=== PATIENT | female | born 1930 | race Caucasian/White ===

== ENCOUNTER 2019-02-11 16:37 | Inpatient (IN) | payer MEDICARE, BC ==
[2019-02-11] MEDS ORDERED: Albuterol/Ipratropium 3.0-0.5 MG/3 ML Neb Soln NEB ONE (17:58)
--- NOTE | 2019-02-11 18:25 | EDM.PDOC ---
<Corina Cohn - Last Filed: 02/11/19 19:14> ED HPI GENERAL MEDICAL PROBLEM - General Chief Complaint: General Stated Complaint: KIDNEY PROBLEMS,DIZZY,DIARRHEA Time Seen by Provider: 02/11/19 17:55 - Related Data Allergies Allergy/AdvReac Type Severity Reaction Status Date / Time amoxicillin Allergy Other Verified 02/11/19 17:58 cetylpyridinium chloride Allergy Edema Verified 02/11/19 17:58 diphtheria,pertussis,tetanus,polio Allergy Other Verified 02/11/19 17:58 erythromycin base Allergy Diarrhea Verified 02/11/19 17:58 [From Erythrocin] lisinopril Allergy Other Verified 02/11/19 17:58 Macrolide Antibiotics Allergy Rash Verified 02/11/19 17:58 methyldopa Allergy Other Verified 02/11/19 17:58 Penicillins Allergy Rash Verified 02/11/19 17:58 simvastatin Allergy Other Verified 02/11/19 17:58 Home Meds: Home Meds Aspirin 325 mg PO DAILY 02/11/19 [History] Calcium Citrate 200 mg PO DAILY 02/11/19 [History] Cetirizine [ZyrTEC] 10 mg PO DAILY 02/11/19 [History] Cholestyramine (With Sugar) [Questran Powder] 4 gm PO DAILY 02/11/19 [History] L Acidophil/B Lactis/B Longum [Florajen3] 460 mg PO DAILY 02/11/19 [History] Levothyroxine Sodium [Synthroid] 150 mcg PO DAILY 02/11/19 [History] Losartan [Cozaar] 100 mg PO DAILY 02/11/19 [History] Meclizine [Antivert] 25 mg PO TID 02/11/19 [History] Metoprolol Succinate [Toprol XL 100mg] 100 mg PO DAILY 02/11/19 [History] Mirtazapine [Remeron] 7.5 mg PO BEDTIME 02/11/19 [History] Pantoprazole Sodium [Protonix] 40 mg PO DAILY 02/11/19 [History] Triamcinolone Acetonide [Kenalog 0.1% Crm] 1 applic TOP DAILY 02/11/19 [History] amLODIPine Besylate [Norvasc] 10 mg PO DAILY 02/11/19 [History] Course - Vital Signs Last Recorded V/S: Last Vital Signs Temp 97.6 F 02/12/19 07:00 Pulse 81 02/12/19 07:00 Resp 16 02/12/19 07:00 BP 110/56 L 02/12/19 07:00 Pulse Ox 97 02/12/19 07:00 - Orders/Labs/Meds Orders: Active Orders 24 hr Category Date Time Status Oxygen Therapy, ED [RC] ASDIRECTED Care 02/11/19 19:36 Inactive CULTURE URINE [RM] Stat Lab 02/11/19 20:22 Results Sodium Chloride 0.9% [Normal Saline] 1,000 ml Med 02/11/19 20:30 Active IV ASDIRECTED cefTRIAXone [Rocephin] 1 gm Med 02/11/19 20:30 Active Sodium Chloride 0.9% [Normal Saline] 50 ml IV Q24H Medication Orders Acetaminophen (Tylenol) 650 mg PO Q4H PRN PRN Reason: Pain (Mild 1-3)/fever Albuterol (Proventil Neb Soln) 2.5 mg NEB Q4H PRN PRN Reason: Shortness Of Breath/wheezing Amlodipine Besylate (Norvasc) 10 mg PO DAILY [facility] Aspirin (Ecotrin) 325 mg PO DAILY [facility] Cetirizine HCl (Zyrtec) 10 mg PO DAILY [facility] Cholestyramine Resin (Cholestyramine Packet) 4 gm PO DAILY [facility] Ceftriaxone Sodium 1 gm/ (Sodium Chloride) 50 mls @ 100 mls/hr IV Q24H [facility] Last Admin: 02/11/19 20:50 Dose: 100 mls/hr Sodium Chloride (Normal Saline) 1,000 mls @ 100 mls/hr IV ASDIRECTED [facility] Last Admin: 02/12/19 03:28 Dose: 100 mls/hr Infusion: 02/12/19 03:28 Dose: 100 mls/hr Admin: 02/11/19 20:49 Dose: 100 mls/hr Lactobacillus Rhamnosus (Culturelle) 1 cap PO DAILY [facility] Levothyroxine Sodium (Synthroid) 150 mcg PO DAILY [facility] Melatonin (Melatonin) 9 mg PO BEDTIME PRN PRN Reason: Sleep Metoprolol Succinate (Toprol Xl) 100 mg PO DAILY [facility] Mirtazapine (Remeron) 7.5 mg PO BEDTIME [facility] Last Admin: 02/11/19 21:20 Dose: Not Given Ondansetron HCl (Zofran Odt) 4 mg PO Q6H PRN PRN Reason: Nausea able to take PO Ondansetron HCl (Zofran) 4 mg IV Q6H PRN PRN Reason: Nausea/Vomiting Labs: Laboratory Tests 02/11/19 02/11/19 02/11/19 Range/Units 17:55 19:36 19:49 WBC 9.4 (4.5-11.0) K/uL RBC 4.45 (3.30-5.50) M/uL Hgb 12.6 (12.0-15.0) g/dL Hct 39.3 (36.0-48.0) % MCV 88 (80-98) fL MCH 28 (27-31) pg MCHC 32 (32-36) % Plt Count 306 (150-400) K/uL Neut % (Auto) 62 (36-66) % Lymph % (Auto) 26 (24-44) % Brule % (Auto) 10 H (2-6) % Eos % (Auto) 2 (2-4) % Baso % (Auto) 1 (0-1) % Troponin I < 0.017 (0.000-0.056) ng/mL TSH, Ultra Sensitive (0.358-3.740) uIU/mL Urine Color Yellow Urine Appearance Cloudy Urine pH 5.0 (4.5-8.0) Ur Specific Sem[place] 1.015 (1.008-1.030) Urine Protein Negative (NEGATIVE) mg/dL Urine Glucose (UA) Normal (NEGATIVE) mg/dL Urine Ketones Negative (NEGATIVE) mg/dL Urine Occult Blood Trace (NEGATIVE) Urine Nitrite Negative (NEGATIVE) Urine Bilirubin Negative (NEGATIVE) Urine Urobilinogen Normal (NORMAL) mg/dL Ur Leukocyte Esterase Moderate (NEGATIVE) Urine RBC 5-10 H (0-5) Urine WBC 40-50 H (0-5) Ur Epithelial Cells Moderate Amorphous Sediment Not seen Urine Bacteria Moderate Urine Mucus Not seen 02/11/19 Range/Units 19:50 WBC (4.5-11.0) K/uL RBC (3.30-5.50) M/uL Hgb (12.0-15.0) g/dL Hct (36.0-48.0) % MCV (80-98) fL MCH (27-31) pg MCHC (32-36) % Plt Count (150-400) K/uL Neut % (Auto) (36-66) % Lymph % (Auto) (24-44) % Brule % (Auto) (2-6) % Eos % (Auto) (2-4) % Baso % (Auto) (0-1) % Troponin I (0.000-0.056) ng/mL TSH, Ultra Sensitive 8.126 H (0.358-3.740) uIU/mL Urine Color Urine Appearance Urine pH (4.5-8.0) Ur Specific Seminary (1.008-1.030) Urine Protein (NEGATIVE) mg/dL Urine Glucose (UA) (NEGATIVE) mg/dL Urine Ketones (NEGATIVE) mg/dL Urine Occult Blood (NEGATIVE) Urine Nitrite (NEGATIVE) Urine Bilirubin (NEGATIVE) Urine Urobilinogen (NORMAL) mg/dL Ur Leukocyte Esterase (NEGATIVE) Urine RBC (0-5) Urine WBC (0-5) Ur Epithelial Cells Amorphous Sediment Urine Bacteria Urine Mucus Meds: Medications Generic Name Dose Route Start Last Admin Trade Name Freq PRN Reason Stop Dose Admin Acetaminophen 650 mg 02/11/19 21:03 Tylenol PO Q4H PRN Pain (Mild 1-3)/fever Albuterol 2.5 mg 02/11/19 21:03 Proventil Neb Soln NEB Q4H PRN Shortness Of Breath/wheezing Amlodipine Besylate 10 mg 02/12/19 09:00 Norvasc PO DAILY [facility] Aspirin 325 mg 02/12/19 09:00 Ecotrin PO DAILY [facility] Cetirizine HCl 10 mg 02/12/19 09:00 Zyrtec PO DAILY [facility] Cholestyramine Resin 4 gm 02/12/19 09:00 Cholestyramine Packet PO DAILY [facility] Ceftriaxone Sodium 1 gm/ 50 mls @ 100 mls/hr 02/11/19 20:30 02/11/19 20:50 Sodium Chloride IV 100 mls/hr Q24H [facility] Administration Sodium Chloride 1,000 mls @ 100 mls/hr 02/11/19 20:30 02/12/19 03:28 Normal Saline IV 100 mls/hr ASDIRECTED [facility] Administration Lactobacillus Rhamnosus 1 cap 02/12/19 09:00 Culturelle PO DAILY [facility] Levothyroxine Sodium 150 mcg 02/12/19 09:00 Synthroid PO DAILY [facility] Melatonin 9 mg 02/11/19 21:03 Melatonin PO BEDTIME PRN Sleep Metoprolol Succinate 100 mg 02/12/19 09:00 Toprol Xl PO DAILY [facility] Mirtazapine 7.5 mg 02/11/19 21:15 02/11/19 21:20 Remeron PO Not Given BEDTIME [facility] Ondansetron HCl 4 mg 02/11/19 21:03 Zofran Odt PO Q6H PRN Nausea able to take PO Ondansetron HCl 4 mg 02/11/19 21:03 Zofran IV Q6H PRN Nausea/Vomiting Discontinued Medications Generic Name Dose Route Start Last Admin Trade Name Freq PRN Reason Stop Dose Admin Albuterol/Ipratropium 3 ml 02/11/19 17:58 02/11/19 18:08 Duoneb 3.0-0.5 Mg/3 Ml NEB 02/11/19 17:59 3 ml ONETIME ONE Administration Sodium Chloride 500 mls @ 999 mls/hr 02/11/19 18:30 02/11/19 18:45 Normal Saline IV 999 mls/hr ASDIRECTED [facility] Administration Sodium Chloride 1,000 mls @ 500 mls/hr 02/11/19 21:03 02/11/19 21:23 Normal Saline IV 02/11/19 22:04 500 mls/hr ASDIRECTED [facility] Administration - Re-Assessments/Exams Free Text/Narrative Re-Assessment/Exam: 02/11/19 19:14 pt had a neg cat scan of the chest and her trop was neg. She will be admitted by Dr Ness. Departure - Departure Time of Disposition: 19:15 Disposition: Admitted As Inpatient 67 Condition: Fair Clinical Impression: Weakness, Dehydration, Acute kidney injury Atrial fibrillation Qualifiers: Atrial fibrillation type: unspecified Qualified Code(s): I48.91 - Unspecified atrial fibrillation - Discharge Information <Jason Parks - Last Filed: 02/12/19 07:37> ED HPI GENERAL MEDICAL PROBLEM - General Source of Information: Reports: Patient, Family, Provider History Limitations: Reports: No Limitations - History of Present Illness INITIAL COMMENTS - FREE TEXT/NARRATIVE: 88-year-old female, who normally is self-sufficient, ambulates without difficulty and does not usually struggle with dyspnea has had 3 days of weakness , shortness of breath with ambulation and activity, and fatigue. She is also very dizzy. She went into the clinic to be evaluated, was found to have a rising creatinine and felt she needed further workup in the emergency room. A chest x-ray done at the clinic was felt to be "normal". She denies any chest pain or palpitations. She has chronic diarrhea but that is unchanged. She has chronic back pain, that is also unchanged. She does admit she's had increasing cough over the past week or two. She has had no recent falls or trauma. Her main concern is her significant shortness of breath with any activity. Onset: Gradual Duration: Day(s): (Worsening over the last several days) Associated Symptoms: Reports: Cough (She has been struggling with a cough for the past week), Shortness of Breath (Especially with activity), Weakness. Denies: Confusion, Chest Pain, Nausea/Vomiting Past Medical History HEENT History: Reports: Cataract, Impaired Vision Cardiovascular History: Reports: Hypertension Gastrointestinal History: Reports: Chronic Diarrhea AUTOGLAZIER History: Reports: Musculoskeletal History: Reports: Back Pain, Chronic Neurological History: Reports: TIA Endocrine/Metabolic History: Reports: Hypothyroidism Dermatologic History: Reports: Eczema - Past Surgical History Head Surgeries/Procedures: Reports: None HEENT Surgical History: Reports: None Cardiovascular Surgical History: Reports: None GI Surgical History: Reports: None Endocrine Surgical History: Reports: None Neurological Surgical History: Reports: None Musculoskeletal Surgical History: Reports: Shoulder Surgery, Other (See Below) Other Musculoskeletal Surgeries/Procedures:: left elbow Dermatological Surgical History: Reports: None Social & Family History - Tobacco Use Smoking Status *Q: Never Smoker Second Hand Smoke Exposure: No - Caffeine Use Caffeine Use: Reports: Tea - Recreational Drug Use Recreational Drug Use: No ED ROS GENERAL - Review of Systems Review Of Systems: See Below Constitutional: Reports: Malaise. Denies: Fever, Chills HEENT: Reports: No Symptoms Respiratory: Reports: Shortness of Breath, Cough Cardiovascular: Denies: Chest Pain, Palpitations GI/Abdominal: Reports: Diarrhea. Denies: Abdominal Pain, Nausea, Vomiting : Reports: No Symptoms Skin: Reports: No Symptoms Neurological: Reports: Dizziness. Denies: Headache Psychiatric: Reports: No Symptoms ED EXAM, GENERAL - Physical Exam Exam: See Below Exam Limited By: No Limitations General Appearance: Alert, No Apparent Distress Eye Exam: Bilateral Eye: EOMI Head: Atraumatic Respiratory/Chest: No Respiratory Distress, Wheezing (Scattered expiratory wheezes are present but good air movement is present to the bases) Cardiovascular: Irregularly Irregular (Heart sounds are faint, irregularly irregular) GI/Abdominal: Soft, Non-Tender Extremities: No: Pedal Edema Neurological: Alert, Oriented, No Motor/Sensory Deficits Skin Exam: Warm, Dry Course - Orders/Labs/Meds Labs: Laboratory Tests 02/11/19 02/11/19 02/11/19 Range/Units 17:55 19:36 19:49 WBC 9.4 (4.5-11.0) K/uL RBC 4.45 (3.30-5.50) M/uL Hgb 12.6 (12.0-15.0) g/dL Hct 39.3 (36.0-48.0) % MCV 88 (80-98) fL MCH 28 (27-31) pg MCHC 32 (32-36) % Plt Count 306 (150-400) K/uL Neut % (Auto) 62 (36-66) % Lymph % (Auto) 26 (24-44) % Brule % (Auto) 10 H (2-6) % Eos % (Auto) 2 (2-4) % Baso % (Auto) 1 (0-1) % Troponin I < 0.017 (0.000-0.056) ng/mL TSH, Ultra Sensitive (0.358-3.740) uIU/mL Urine Color Yellow Urine Appearance Cloudy Urine pH 5.0 (4.5-8.0) Ur Specific [place] 1.015 (1.008-1.030) Urine Protein Negative (NEGATIVE) mg/dL Urine Glucose (UA) Normal (NEGATIVE) mg/dL Urine Ketones Negative (NEGATIVE) mg/dL Urine Occult Blood Trace (NEGATIVE) Urine Nitrite Negative (NEGATIVE) Urine Bilirubin Negative (NEGATIVE) Urine Urobilinogen Normal (NORMAL) mg/dL Ur Leukocyte Esterase Moderate (NEGATIVE) Urine RBC 5-10 H (0-5) Urine WBC 40-50 H (0-5) Ur Epithelial Cells Moderate Amorphous Sediment Not seen Urine Bacteria Moderate Urine Mucus Not seen 02/11/19 Range/Units 19:50 WBC (4.5-11.0) K/uL RBC (3.30-5.50) M/uL Hgb (12.0-15.0) g/dL Hct (36.0-48.0) % MCV (80-98) fL MCH (27-31) pg MCHC (32-36) % Plt Count (150-400) K/uL Neut % (Auto) (36-66) % Lymph % (Auto) (24-44) % Brule % (Auto) (2-6) % Eos % (Auto) (2-4) % Baso % (Auto) (0-1) % Troponin I (0.000-0.056) ng/mL TSH, Ultra Sensitive 8.126 H (0.358-3.740) uIU/mL Urine Color Urine Appearance Urine pH (4.5-8.0) Ur Specific Seminary (1.008-1.030) Urine Protein (NEGATIVE) mg/dL Urine Glucose (UA) (NEGATIVE) mg/dL Urine Ketones (NEGATIVE) mg/dL Urine Occult Blood (NEGATIVE) Urine Nitrite (NEGATIVE) Urine Bilirubin (NEGATIVE) Urine Urobilinogen (NORMAL) mg/dL Ur Leukocyte Esterase (NEGATIVE) Urine RBC (0-5) Urine WBC (0-5) Ur Epithelial Cells Amorphous Sediment Urine Bacteria Urine Mucus - Re-Assessments/Exams Free Text/Narrative Re-Assessment/Exam: 02/11/19 18:24 Cardiac monitoring showed patient was in atrial fibrillation. This is new to her. I did review the labs from the clinic and it does appear to be some dehydration likely. She'll be bolused with 500 mL of normal saline, given a DuoNeb as she needs to to 3 L of oxygen to maintain saturations above 90%. Troponin will be drawn and after consultation the hospitalist service a CT of her chest without contrast. If her troponin is negative she may be able to be cared for here hospital, if troponin is elevated she may need transfer. This was discussed with Dr. Cohn who will take over care of the patient pending labs.
[2019-02-11] MEDS ORDERED: Sodium Chloride 0.9% 500 ML IV SCH (18:30)
--- NOTE | 2019-02-11 19:12 | CRLCT ---
INDICATION: Hypoxia, cough. TECHNIQUE: CT chest without contrast. COMPARISON: None FINDINGS: Cardiovascular structures: Heart size is normal. Thoracic aorta and main pulmonary artery are normal in caliber. Coronary artery calcifications. Atherosclerotic calcification of the aortic arch and origins of the great vessels. No pericardial effusion. Mediastinum and hodan: No mediastinal or hilar lymphadenopathy. Lungs: Central airways are patent. Calcified granuloma in the right lower lobe. No focal consolidation or mass. There is a 4 mm solid nodule in the left upper lobe (series 3, image 46). Pleura and pericardium: No effusions. Chest wall and axilla: No mass or adenopathy. Bones: Multilevel degenerative changes of spine. Surgical hardware in the left humeral head. Chronic appearing fractures of the left lateral 5th and 6th ribs. Upper abdomen: Small hiatal hernia. Calcified granulomas in spleen, consistent with chronic granulomatous disease. IMPRESSION: 1. No focal pulmonary consolidation. No pulmonary mass. 2. Left upper lobe pulmonary nodule measuring 4 mm. Per Fleischner Society guidelines, if the patient is low risk, no follow-up is required. If the patient is high risk, optional CT could be performed in 12 months. FLEISCHNER SOCIETY GUIDELINES - SOLID NODULES: SINGLE LOW RISK - nodule less than 6 mm: No routine follow-up. - nodule 6-8 mm: CT at 6-12 months, then consider CT at 18-24 months. - nodule greater than 8 mm: Consider CT at 3 months, PET/CT or tissue sampling. SINGLE HIGH RISK - nodule less than 6 mm: Optional CT at 12 months. - nodule 6-8 mm: CT at 6-12 months, then CT at 18-24 months. - nodule greater than 8 mm: Consider CT at 3 months, PET/CT or tissue sampling. Dictated by Kirti Srinivasan MD @ 02/11/2019 7:11:16 PM Please note that all CT scans at this facility use dose modulation, iterative reconstruction, and/or weight-based dosing when appropriate to reduce radiation dose to as low as reasonably achievable. Dictated by: Kirti Srinivasan MD @ 02/11/2019 19:11:22 (Electronically Signed)
--- NOTE | 2019-02-11 20:32 | PCM.HP ---
H&P History of Present Illness - General Date of Service: 02/11/19 Admit Problem/Dx: Admission Diagnosis/Problem Admission Diagnosis/Problem Acute kidney injury Source of Information: Patient, Family, Provider History Limitations: Reports: No Limitations - History of Present Illness Initial Comments - Free Text/Narative: CC: I am short of breath after walking ten feet HPI: Antonietta presents to the ER from the urgent care clinic with concerns of significant shortness of breath with exertion as well as acute kidney injury. She reports first not feeling well about 2 weeks ago. She describes mild fatigue and right lower back soreness with activity. The achy pain was relatively mild and did get better with rest but was new for her. The pain did not radiate down her leg. No preceding injury. Over the next couple of weeks her energy and appetite both slowly decreased. Over the past few days she has had a very poor appetite and very little to eat or drink. She is short of breath with any activity. She has not had any chest pain. She does have an occasional cough which is sometimes productive for sputum but she has not checked the color. She doesn't think she's had any fevers but has had some chills. She has not had any sick contacts. No significant travel. She has not started any new medications. She thinks maybe she's been urinating a little less than usual but still makes close to normal quantities of urine each day. Workup in the clinic revealed a creatinine of 3.2 with a metabolic acidosis and a bicarbonate of 13. Potassium is borderline at 5.3 and sodium is slightly low at 133. Chest x-ray was clear. With the significant dyspnea and acute kidney injury the patient was sent to the emergency room for further evaluation. Further laboratory studies in the emergency room revealed a troponin that was undetectable, mildly elevated TSH, normal CBC. Urinalysis moderately suggestive of infection. She is in atrial fibrillation with a controlled ventricular rate. She was hypoxic and required 3 L of oxygen initially. Chest CT without contrast was unremarkable. Oxygen has been weaned down to 1 L. Patient has received some IV fluids and will be receiving antibiotics for her infection. She'll be admitted for management of a variety of issues. - Related Data Allergies/Adverse Reactions: Allergies Allergy/AdvReac Type Severity Reaction Status Date / Time amoxicillin Allergy Other Verified 02/11/19 17:58 cetylpyridinium chloride Allergy Edema Verified 02/11/19 17:58 diphtheria,pertussis,tetanus,polio Allergy Other Verified 02/11/19 17:58 erythromycin base Allergy Diarrhea Verified 02/11/19 17:58 [From Erythrocin] lisinopril Allergy Other Verified 02/11/19 17:58 Macrolide Antibiotics Allergy Rash Verified 02/11/19 17:58 methyldopa Allergy Other Verified 02/11/19 17:58 Penicillins Allergy Rash Verified 02/11/19 17:58 simvastatin Allergy Other Verified 02/11/19 17:58 Home Medications: Home Meds Aspirin 325 mg PO DAILY 02/11/19 [History] Calcium Citrate 200 mg PO DAILY 02/11/19 [History] Cetirizine [ZyrTEC] 10 mg PO DAILY 02/11/19 [History] Cholestyramine (With Sugar) [Questran Powder] 4 gm PO DAILY 02/11/19 [History] L Acidophil/B Lactis/B Longum [Florajen3] 460 mg PO DAILY 02/11/19 [History] Levothyroxine Sodium [Synthroid] 150 mcg PO DAILY 02/11/19 [History] Losartan [Cozaar] 100 mg PO DAILY 02/11/19 [History] Meclizine [Antivert] 25 mg PO TID 02/11/19 [History] Metoprolol Succinate [Toprol XL 100mg] 100 mg PO DAILY 02/11/19 [History] Mirtazapine [Remeron] 7.5 mg PO BEDTIME 02/11/19 [History] Pantoprazole Sodium [Protonix] 40 mg PO DAILY 02/11/19 [History] Triamcinolone Acetonide [Kenalog 0.1% Crm] 1 applic TOP DAILY 02/11/19 [History] amLODIPine Besylate [Norvasc] 10 mg PO DAILY 02/11/19 [History] Past Medical History HEENT History: Reports: Cataract, Impaired Vision Cardiovascular History: Reports: Hypertension Gastrointestinal History: Reports: Chronic Diarrhea [employer] History: Reports: Musculoskeletal History: Reports: Back Pain, Chronic Neurological History: Reports: TIA Endocrine/Metabolic History: Reports: Hypothyroidism Dermatologic History: Reports: Eczema - Past Surgical History Head Surgeries/Procedures: Reports: None HEENT Surgical History: Reports: None Cardiovascular Surgical History: Reports: None GI Surgical History: Reports: None Endocrine Surgical History: Reports: None Neurological Surgical History: Reports: None Musculoskeletal Surgical History: Reports: Shoulder Surgery, Other (See Below) Other Musculoskeletal Surgeries/Procedures:: left elbow Dermatological Surgical History: Reports: None Social & Family History - Family History : Denies: Dialysis - Tobacco Use Smoking Status *Q: Never Smoker Second Hand Smoke Exposure: No - Caffeine Use Caffeine Use: Reports: Tea - Alcohol Use Alcohol Use History: No - Recreational Drug Use Recreational Drug Use: No H&P Review of Systems - Review of Systems: Review Of Systems: See Below Free Text/Narrative: A complete 12 point review of systems was obtained. Pertinent positives and negatives are noted in the history of present illness. All other systems were reviewed and were negative except as noted. Exam - Exam Exam: See Below - Vital Signs Vital Signs: Last Vital Signs Temp 35.4 C 02/11/19 19:32 Pulse 89 02/11/19 19:32 Resp 19 02/11/19 19:32 BP 119/77 02/11/19 19:32 Pulse Ox 100 02/11/19 19:32 Weight: 71 kg - Exam Quality Assessment: Supplemental Oxygen General: Alert, Oriented, Cooperative. No: Mild Distress HEENT: Conjunctiva Clear. No: Mucosa Moist & [place] (dry), Scleral Icterus Neck: Supple, Trachea Midline. No: Lymphadenopathy, JVD Lungs: Clear to Auscultation, Normal Respiratory Effort. No: Crackles, Wheezing Cardiovascular: Regular Rate, Irregular Rhythm. No: Systolic Murmur GI/Abdominal Exam: Normal Bowel Sounds, Soft, Non-Tender, No Distention, No Mass Back Exam: Normal Inspection, Full Range of Motion Extremities: No Pedal Edema. No: Joint Swelling, Increased Warmth Skin: Warm, Dry Neuro Extensive - Mental Status: Alert, Oriented x3, Nl Response to Commands Neuro Extensive - Motor, Sensory, Reflexes: No: Dysarthria, Abnormal Motor, Tremor Psychiatric: Alert, Normal Affect - Patient Data Lab Results Last 24 hrs: Laboratory Results - last 24 hr 02/11/19 02/11/19 02/11/19 Range/Units 17:55 19:36 19:49 WBC 9.4 (4.5-11.0) K/uL RBC 4.45 (3.30-5.50) M/uL Hgb 12.6 (12.0-15.0) g/dL Hct 39.3 (36.0-48.0) % MCV 88 (80-98) fL MCH 28 (27-31) pg MCHC 32 (32-36) % Plt Count 306 (150-400) K/uL Neut % (Auto) 62 (36-66) % Lymph % (Auto) 26 (24-44) % [place] % (Auto) 10 H (2-6) % Eos % (Auto) 2 (2-4) % Baso % (Auto) 1 (0-1) % Troponin I < 0.017 (0.000-0.056) ng/mL TSH, Ultra Sensitive (0.358-3.740) uIU/mL Urine Color Yellow Urine Appearance Cloudy Urine pH 5.0 (4.5-8.0) Ur Specific [place] 1.015 (1.008-1.030) Urine Protein Negative (NEGATIVE) mg/dL Urine Glucose (UA) Normal (NEGATIVE) mg/dL Urine Ketones Negative (NEGATIVE) mg/dL Urine Occult Blood Trace (NEGATIVE) Urine Nitrite Negative (NEGATIVE) Urine Bilirubin Negative (NEGATIVE) Urine Urobilinogen Normal (NORMAL) mg/dL Ur Leukocyte Esterase Moderate (NEGATIVE) Urine RBC 5-10 H (0-5) Urine WBC 40-50 H (0-5) Ur Epithelial Cells Moderate Amorphous Sediment Not seen Urine Bacteria Moderate Urine Mucus Not seen 02/11/19 Range/Units 19:50 WBC (4.5-11.0) K/uL RBC (3.30-5.50) M/uL Hgb (12.0-15.0) g/dL Hct (36.0-48.0) % MCV (80-98) fL MCH (27-31) pg MCHC (32-36) % Plt Count (150-400) K/uL Neut % (Auto) (36-66) % Lymph % (Auto) (24-44) % [place] % (Auto) (2-6) % Eos % (Auto) (2-4) % Baso % (Auto) (0-1) % Troponin I (0.000-0.056) ng/mL TSH, Ultra Sensitive 8.126 H (0.358-3.740) uIU/mL Urine Color Urine Appearance Urine pH (4.5-8.0) Ur Specific [place] (1.008-1.030) Urine Protein (NEGATIVE) mg/dL Urine Glucose (UA) (NEGATIVE) mg/dL Urine Ketones (NEGATIVE) mg/dL Urine Occult Blood (NEGATIVE) Urine Nitrite (NEGATIVE) Urine Bilirubin (NEGATIVE) Urine Urobilinogen (NORMAL) mg/dL Ur Leukocyte Esterase (NEGATIVE) Urine RBC (0-5) Urine WBC (0-5) Ur Epithelial Cells Amorphous Sediment Urine Bacteria Urine Mucus Result Diagrams: 02/11/19 19:49 Imaging Impressions Last 24 hrs: CT scan of the chest without contrast - images personally reviewed - lungs are clear with no obvious mass, infiltrate or effusion. A very small 4 mm pulmonary nodule was noted *Q Meaningful Use (ADM) - VTE Risk Assess *Q Each Risk Factor Represents 1 Point: Obesity ( BMI > 25 kg/m2) Total Score 1 Point Risk Factors: 1 Each Risk Factor Represents 2 Points: None Total Score 2 Point Risk Factors: 0 Each Risk Factor Represents 3 Points: Age 75 Years or Greater Total Score 3 Point Risk Factors: 3 Each Risk Factor Represents 5 Points: None Total Score 5 Point Risk Factors: 0 Venous Thromboembolism Risk Factor Score *Q: 4 - Problem List (1) Acute kidney injury superimposed on chronic kidney disease SNOMED Code(s): 21219305 ICD Code: N17.9 - ACUTE KIDNEY FAILURE, UNSPECIFIED; N18.9 - CHRONIC KIDNEY DISEASE, UNSPECIFIED Status: Acute Current Visit: Yes (2) Metabolic acidosis SNOMED Code(s): 54529648 ICD Code: E87.2 - ACIDOSIS Status: Acute Current Visit: Yes (3) Dyspnea on exertion SNOMED Code(s): 31514854 ICD Code: R06.09 - OTHER FORMS OF DYSPNEA Status: Acute Current Visit: Yes (4) Hypoxia SNOMED Code(s): 693968215 ICD Code: R09.02 - HYPOXEMIA Status: Acute Current Visit: Yes (5) New onset atrial fibrillation SNOMED Code(s): 56095564 ICD Code: I48.91 - UNSPECIFIED ATRIAL FIBRILLATION Status: Acute Current Visit: Yes (6) Acute cystitis without hematuria SNOMED Code(s): 07019760 ICD Code: N30.00 - ACUTE CYSTITIS WITHOUT HEMATURIA Status: Acute Current Visit: Yes (7) Essential hypertension SNOMED Code(s): 02028165 ICD Code: I10 - ESSENTIAL (PRIMARY) HYPERTENSION Status: Chronic Current Visit: Yes Problem List Initiated/Reviewed/Updated: Yes Orders Last 24hrs: Active Orders 24 hr Category Date Time Status Patient Status Manage Transfer [TRANSFER] Routine ADT 02/11/19 20:22 Ordered Oxygen Therapy, ED [RC] ASDIRECTED Care 02/11/19 19:36 Active RT Aerosol Therapy [RC] ASDIRECTED Care 02/11/19 17:58 Active CULTURE URINE [RM] Stat Lab 02/11/19 20:22 Received Sodium Chloride 0.9% [Normal Saline] 1,000 ml Med 02/11/19 20:30 Active IV ASDIRECTED Sodium Chloride 0.9% [Normal Saline] 500 ml Med 02/11/19 18:30 Active IV ASDIRECTED cefTRIAXone [Rocephin] 1 gm Med 02/11/19 20:30 Active Sodium Chloride 0.9% [Normal Saline] 50 ml IV Q24H Resuscitation Status Routine Resus Stat 02/11/19 20:24 Ordered Medication Orders Sodium Chloride (Normal Saline) 500 mls @ 999 mls/hr IV ASDIRECTED SINA Last Admin: 02/11/19 18:45 Dose: 999 mls/hr Ceftriaxone Sodium 1 gm/ (Sodium Chloride) 50 mls @ 100 mls/hr IV Q24H SINA Sodium Chloride (Normal Saline) 1,000 mls @ 100 mls/hr IV ASDIRECTED ISNA Assessment/Plan Comment:: ASSESSMENT AND PLAN - Acute kidney injury - also has metabolic acidosis but normal anion gap. She appears dehydrated on examination so I think this is prerenal. Intake has been poor. She is on an ARB and is also on a proton pump inhibitor, both of which could be culprits. She is still making urine so I don't think there is bilateral obstruction. Potassium is borderline elevated. -IV fluids overnight -Hold ARB and PPI -Renal ultrasound in the morning -Repeat labs in the morning Dyspnea on exertion with associated hypoxia - oxygenation seems variable from [id number] and she may not actually be hypoxic. Chest x-ray was clear. Pulmonary exam is clear. CT of the chest was unremarkable. The dyspnea may be related to her metabolic acidosis. -Supplement oxygen, wean as able -As needed nebulizers New-onset atrial fibrillation - rate is controlled at this time and patient is on metoprolol. Onset of this dysrhythmia is unclear. Could be related to combination of infection and acute kidney injury. -Continue beta greer -Continue aspirin -Cardiac monitoring -Echo in the morning Acute cystitis - No significant symptoms but urine moderately suggestive of infection. -Empiric ceftriaxone -Set up urine culture Maintenance issues - - DVT prophylaxis - mechanical - GI prophylaxis - not indicated - Nutrition - regular diet - Hernandez catheter - not indicated CODE STATUS - DNR/DNI - discussed with patient and family Admission justification - This patient will be admitted for inpatient services and is medically appropriate meeting medical necessity for inpatient admission as outlined in my documentation. I reasonably expect the patient will require inpatient services that span a period time over 2 midnights. I reasonably expect this patient to be discharged or transferred within 96 [address] the [facility]. Disposition - I would anticipate discharge home after the hospital stay Primary care physician - no local primary care, patient resides in [place], [place] Ron Ness M.D.
[2019-02-11] MEDS: Sodium Chloride 0.9% 1,000 ML IV SCH (20:49)
[2019-02-11] MEDS: cefTRIAXone 1 GM in Sodium Chloride 0.9% 50 ML IV SCH (20:50)
[2019-02-11] MEDS ORDERED: Ondansetron 4 MG Tab.DIS PO PRN (21:03)
[2019-02-11] MEDS ORDERED: Sodium Chloride 0.9% 1,000 ML IV SCH (21:03)
[2019-02-11] MEDS ORDERED: Melatonin 3 MG Tab PO PRN (21:03)
[2019-02-11] MEDS ORDERED: Acetaminophen 325 MG Tab PO PRN (21:03)
[2019-02-11] MEDS ORDERED: Albuterol 0.083% 2.5 MG/3 ML Neb Soln NEB PRN (21:03)
[2019-02-11] MEDS ORDERED: Ondansetron 4 MG/2 ML SDV IV PRN (21:03)
[2019-02-11] MEDS: Mirtazapine 15 MG Tab PO SCH (21:20)
[2019-02-12] MEDS: Sodium Chloride 0.9% 1,000 ML IV SCH (03:28)
--- NOTE | 2019-02-12 08:43 | CRLUS ---
CLINICAL HISTORY: Acute renal injury. Rule out obstruction. COMPARISON: none TECHNIQUE: 2D garcia scale and color Doppler images were acquired of the kidneys and urinary bladder. FINDINGS: Sonographic images reveal a symmetric appearance of the kidneys. The right kidney measures 10.4cm in length and the left kidney measures 9.6cm in length. There is mild thinning of the renal cortex within both kidneys. There is a oval hyperechoic mass within the mid right kidney measuring 16 x 10 mm. 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 There is a 18 x 11 mm cysts within the lower pole. The urinary bladder appears normal. There is no evidence of bladder calculi or diverticula. IMPRESSION: No evidence of hydronephrosis. 16 mm hyperechoic area within the mid right kidney. 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 Dictated by Scott Torres MD @ 02/12/2019 8:41:25 AM Dictated by: Scott Torres MD @ 02/12/2019 08:41:40 (Electronically Signed)
[2019-02-12] MEDS: Cetirizine 10 MG Tab PO SCH (09:06)
[2019-02-12] MEDS: Lactobacillus Rhamnosus GG (Probiotic) Cap PO SCH (09:07)
[2019-02-12] MEDS: amLODIPine 10 MG Tab PO SCH (09:07)
[2019-02-12] MEDS: Levothyroxine 50 MCG Tab PO SCH (09:07)
[2019-02-12] MEDS: Cholestyramine/Sucrose Powder 4 GM Packet PO SCH (09:08)
[2019-02-12] MEDS: Aspirin 325 MG Tab.EC PO SCH (09:08)
[2019-02-12] MEDS: Metoprolol Succinate 50 MG Tab.ER PO SCH (09:08)
--- NOTE | 2019-02-12 10:37 | PCM.PN ---
- General Info Date of Service: 02/12/19 Subjective Update: there were no acute events overnight. Vital signs have been stable. Patient believes her shortness of breath is better today though she hasn't done anything outside of her room. No complaints of nausea or abdominal pain and her appetite has improved. No complaints of low back pain today. No fevers overnight. Urine culture is growing a gram-negative rods with identification pending. 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 Echocardiogram pending. Creatinine has improved with decreased down to 2.2. Functional Status: Reports: Pain Controlled, Tolerating Diet - Review of Systems General: Reports: Weakness. Denies: Fever Pulmonary: Denies: Shortness of Breath Musculoskeletal: Denies: Back Pain - Patient Data Vitals - Most Recent: Last Vital Signs Temp 36.4 C 02/12/19 07:00 Pulse 81 02/12/19 09:08 Resp 16 02/12/19 07:00 BP 110/56 L 02/12/19 09:08 Pulse Ox 97 02/12/19 07:00 Weight - Most Recent: 70.987 kg I&O - Last 24 Hours: Intake & Output 02/11/19 02/12/19 02/12/19 22:59 06:59 14:59 Output Total 1000 Balance -1000 Lab Results Last 24 Hours: Laboratory Results - last 24 hr 02/11/19 02/11/19 02/11/19 Range/Units 17:55 19:36 19:49 WBC 9.4 (4.5-11.0) K/uL RBC 4.45 (3.30-5.50) M/uL Hgb 12.6 (12.0-15.0) g/dL Hct 39.3 (36.0-48.0) % MCV 88 (80-98) fL MCH 28 (27-31) pg MCHC 32 (32-36) % Plt Count 306 (150-400) K/uL Neut % (Auto) 62 (36-66) % Lymph % (Auto) 26 (24-44) % [place] % (Auto) 10 H (2-6) % Eos % (Auto) 2 (2-4) % Baso % (Auto) 1 (0-1) % Sodium (140-148) mmol/L Potassium (3.6-5.2) mmol/L Chloride (100-108) mmol/L Carbon Dioxide (21-32) mmol/L Anion Gap (5.0-14.0) mmol/L BUN (7-18) mg/dL Creatinine (0.6-1.0) mg/dL Est Cr Clr Drug Dosing mL/min Estimated GFR (MDRD) (>60) Glucose (74-106) mg/dL Calcium (8.5-10.1) mg/dL Magnesium (1.8-2.4) mg/dL Troponin I < 0.017 (0.000-0.056) ng/mL TSH, Ultra Sensitive (0.358-3.740) uIU/mL Urine Color Yellow Urine Appearance Cloudy Urine pH 5.0 (4.5-8.0) Ur Specific [place] 1.015 (1.008-1.030) Urine Protein Negative (NEGATIVE) mg/dL Urine Glucose (UA) Normal (NEGATIVE) mg/dL Urine Ketones Negative (NEGATIVE) mg/dL Urine Occult Blood Trace (NEGATIVE) Urine Nitrite Negative (NEGATIVE) Urine Bilirubin Negative (NEGATIVE) Urine Urobilinogen Normal (NORMAL) mg/dL Ur Leukocyte Esterase Moderate (NEGATIVE) Urine RBC 5-10 H (0-5) Urine WBC 40-50 H (0-5) Ur Epithelial Cells Moderate Amorphous Sediment Not seen Urine Bacteria Moderate Urine Mucus Not seen 02/11/19 02/12/19 02/12/19 Range/Units 19:50 05:29 05:29 WBC 6.3 (4.5-11.0) K/uL RBC 3.78 (3.30-5.50) M/uL Hgb 10.5 L D (12.0-15.0) g/dL Hct 33.4 L (36.0-48.0) % MCV 88 (80-98) fL MCH 28 (27-31) pg MCHC 31 L (32-36) % Plt Count 305 (150-400) K/uL Neut % (Auto) (36-66) % Lymph % (Auto) (24-44) % [place] % (Auto) (2-6) % Eos % (Auto) (2-4) % Baso % (Auto) (0-1) % Sodium 143 (140-148) mmol/L Potassium 5.0 (3.6-5.2) mmol/L Chloride 114 H (100-108) mmol/L Carbon Dioxide 15 L (21-32) mmol/L Anion Gap 19.0 H (5.0-14.0) mmol/L BUN 56 H (7-18) mg/dL Creatinine 2.2 H (0.6-1.0) mg/dL Est Cr Clr Drug Dosing 14.90 mL/min Estimated GFR (MDRD) 21 L (>60) Glucose 86 (74-106) mg/dL Calcium 7.7 L (8.5-10.1) mg/dL Magnesium 2.1 (1.8-2.4) mg/dL Troponin I (0.000-0.056) ng/mL TSH, Ultra Sensitive 8.126 H (0.358-3.740) uIU/mL Urine Color Urine Appearance Urine pH (4.5-8.0) Ur Specific [place] (1.008-1.030) Urine Protein (NEGATIVE) mg/dL Urine Glucose (UA) (NEGATIVE) mg/dL Urine Ketones (NEGATIVE) mg/dL Urine Occult Blood (NEGATIVE) Urine Nitrite (NEGATIVE) Urine Bilirubin (NEGATIVE) Urine Urobilinogen (NORMAL) mg/dL Ur Leukocyte Esterase (NEGATIVE) Urine RBC (0-5) Urine WBC (0-5) Ur Epithelial Cells Amorphous Sediment Urine Bacteria Urine Mucus [place] Results Last 24 Hours: Microbiology 02/11/19 20:22 Urine Culture - Preliminary Urine, Clean Catch Med Orders - Current: Current Medications Acetaminophen (Tylenol) 650 mg PO Q4H PRN PRN Reason: Pain (Mild 1-3)/fever Albuterol (Proventil Neb Soln) 2.5 mg NEB Q4H PRN PRN Reason: Shortness Of Breath/wheezing Amlodipine Besylate (Norvasc) 10 mg PO DAILY [facility] Last Admin: 02/12/19 09:07 Dose: 10 mg Aspirin (Ecotrin) 325 mg PO DAILY [facility] Last Admin: 02/12/19 09:08 Dose: 325 mg Cetirizine HCl (Zyrtec) 10 mg PO DAILY [facility] Last Admin: 02/12/19 09:06 Dose: Not Given Cholestyramine Resin (Cholestyramine Packet) 4 gm PO DAILY [facility] Last Admin: 02/12/19 09:08 Dose: 4 gm Ceftriaxone Sodium 1 gm/ (Sodium Chloride) 50 mls @ 100 mls/hr IV Q24H [facility] Last Admin: 02/11/19 20:50 Dose: 100 mls/hr Sodium Chloride (Normal Saline) 1,000 mls @ 100 mls/hr IV ASDIRECTED [facility] Last Admin: 02/12/19 03:28 Dose: 100 mls/hr Lactobacillus Rhamnosus (Culturelle) 1 cap PO DAILY [facility] Last Admin: 02/12/19 09:07 Dose: 1 cap Levothyroxine Sodium (Synthroid) 150 mcg PO DAILY@0730 [facility] Last Admin: 02/12/19 09:07 Dose: 150 mcg Melatonin (Melatonin) 9 mg PO BEDTIME PRN PRN Reason: Sleep Metoprolol Succinate (Toprol Xl) 100 mg PO DAILY [facility] Last Admin: 02/12/19 09:08 Dose: 100 mg Mirtazapine (Remeron) 7.5 mg PO BEDTIME [facility] Last Admin: 02/11/19 21:20 Dose: Not Given Ondansetron HCl (Zofran Odt) 4 mg PO Q6H PRN PRN Reason: Nausea able to take PO Ondansetron HCl (Zofran) 4 mg IV Q6H PRN PRN Reason: Nausea/Vomiting Discontinued Medications Albuterol/Ipratropium (Duoneb 3.0-0.5 Mg/3 Ml) 3 ml NEB ONETIME ONE Stop: 02/11/19 17:59 Last Admin: 02/11/19 18:08 Dose: 3 ml Sodium Chloride (Normal Saline) 500 mls @ 999 mls/hr IV ASDIRECTED [facility] Last Admin: 02/11/19 18:45 Dose: 999 mls/hr Sodium Chloride (Normal Saline) 1,000 mls @ 500 mls/hr IV ASDIRECTED [facility] Stop: 02/11/19 22:04 Last Admin: 02/11/19 21:23 Dose: 500 mls/hr - Exam Quality Assessment: No: Supplemental Oxygen General: Alert, Oriented, Cooperative, No Acute Distress Lungs: Clear to Auscultation, Normal Respiratory Effort Cardiovascular: Regular Rate, Irregular Rhythm GI/Abdominal Exam: Soft, No Distention Extremities: No Pedal Edema Psy/Mental Status: Alert, Normal Affect - Problem List & Annotations (1) Acute kidney injury superimposed on chronic kidney disease SNOMED Code(s): 76986287 Code(s): N17.9 - ACUTE KIDNEY FAILURE, UNSPECIFIED; N18.9 - CHRONIC KIDNEY DISEASE, UNSPECIFIED Status: Acute Current Visit: Yes (2) Metabolic acidosis SNOMED Code(s): 49958341 Code(s): E87.2 - ACIDOSIS Status: Acute Current Visit: Yes (3) Dyspnea on exertion SNOMED Code(s): 11554273 Code(s): R06.09 - OTHER FORMS OF DYSPNEA Status: Acute Current Visit: Yes (4) Hypoxia SNOMED Code(s): 908167471 Code(s): R09.02 - HYPOXEMIA Status: Acute Current Visit: Yes (5) New onset atrial fibrillation SNOMED Code(s): 57234338 Code(s): I48.91 - UNSPECIFIED ATRIAL FIBRILLATION Status: Acute Current Visit: Yes (6) Acute cystitis without hematuria SNOMED Code(s): 52812661 Code(s): N30.00 - ACUTE CYSTITIS WITHOUT HEMATURIA Status: Acute Current Visit: Yes (7) Essential hypertension SNOMED Code(s): 17404376 Code(s): I10 - ESSENTIAL (PRIMARY) HYPERTENSION Status: Chronic Current Visit: Yes - Problem List Review Problem List Initiated/Reviewed/Updated: Yes - My Orders Last 24 Hours: My Active Orders 02/11/19 20:22 CULTURE URINE [RM] Stat 02/11/19 20:24 Resuscitation Status Routine 02/11/19 20:30 Sodium Chloride 0.9% [Normal Saline] 1,000 ml IV ASDIRECTED cefTRIAXone [Rocephin] 1 gm Sodium Chloride 0.9% [Normal Saline] 50 ml IV Q24H 02/11/19 21:03 Patient Status [ADT] Routine Antiembolic Devices [RC] .Routine Cardiac Monitoring [RC] CONTINUOUS Intake and Output [RC] .PRN Notify Provider Vital Signs [RC] ASDIRECTED Oxygen Therapy [RC] .PRN RT Aerosol Therapy [RC] ASDIRECTED Up With Assistance [RC] ASDIRECTED VTE/DVT Education [RC] Per Unit Routine Vital Signs [RC] Q4H Acetaminophen [Tylenol] 650 mg PO Q4H PRN Albuterol [Proventil Neb Soln] 2.5 mg NEB Q4H PRN Melatonin 9 mg PO BEDTIME PRN Ondansetron [Zofran ODT] 4 mg PO Q6H PRN Ondansetron [Zofran] 4 mg IV Q6H PRN Antiembolic Hose [OM.PC] Routine 02/11/19 21:15 Mirtazapine [Remeron] 7.5 mg PO BEDTIME 02/11/19 Dinner Regular Diet [DIET] 02/12/19 07:00 Echo Comp wo Cont [US] Routine 02/12/19 09:00 Aspirin [Ecotrin] 325 mg PO DAILY Cetirizine [ZyrTEC] 10 mg PO DAILY Cholestyramine/Sucrose [Cholestyramine Packet] 4 gm PO DAILY Lactobacillus Rhamnosus GG [Culturelle] 1 cap PO DAILY Levothyroxine [Synthroid] 150 mcg PO DAILY@0730 Metoprolol Succinate [Toprol XL] 100 mg PO DAILY amLODIPine [Norvasc] 10 mg PO DAILY 02/12/19 10:45 Sodium Chloride 0.9% [Normal Saline] 1,000 ml IV ASDIRECTED 02/13/19 05:00 BASIC METABOLIC PANEL,BMP [CHEM] Timed CBC W/O DIFF,HEMOGRAM [HEME] Timed (1) - Plan Plan:: ASSESSMENT AND PLAN - Acute kidney injury - also has metabolic acidosis and slightly elevated anion gap. kidney function and metabolic acidosis are improving with hydration but have not normalized. renal ultrasound did not show evidence for obstruction or hydronephrosis. -continue gentle IV fluids -Hold ARB and PPI -Repeat labs in the morning Dyspnea on exertion with associated hypoxia - oxygenation normal today. Imaging and exam benign. Probably related to her metabolic acidosis. -Supplement oxygen if needed -As needed nebulizers New-onset atrial fibrillation - rate is controlled at this time and patient is on metoprolol. Onset of this dysrhythmia is unclear. probably multifactorial with infection and knee injury. I would anticipate this will resolve with treatment of the above conditions. -Continue beta greer -Continue aspirin -Cardiac monitoring -follow-up echo Acute cystitis - No significant symptoms but urine moderately suggestive of infection and cultures growing a gram-negative rods with identification pending. 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 Very low risk for bleeding or complication. -Outpatient follow-up Maintenance issues - - DVT prophylaxis - mechanical - GI prophylaxis - not indicated - Nutrition - regular diet Disposition - I would anticipate discharge home after the hospital stay Primary care physician - no local primary care, patient resides in [place], [place] Ron Ness M.D.
[2019-02-12] MEDS ORDERED: Sodium Chloride 0.9% 1,000 ML IV SCH (10:45)
[2019-02-12] MEDS: cefTRIAXone 1 GM in Sodium Chloride 0.9% 50 ML IV SCH (19:39)
[2019-02-12] MEDS: Mirtazapine 15 MG Tab PO SCH (20:34)
[2019-02-13] MEDS: Levothyroxine 50 MCG Tab PO SCH (07:35)
[2019-02-13] MEDS: Lactobacillus Rhamnosus GG (Probiotic) Cap PO SCH (08:49)
[2019-02-13] MEDS: Cetirizine 10 MG Tab PO SCH (08:49)
[2019-02-13] MEDS: Cholestyramine/Sucrose Powder 4 GM Packet PO SCH (08:49)
[2019-02-13] MEDS: Aspirin 325 MG Tab.EC PO SCH (08:49)
[2019-02-13] MEDS: amLODIPine 10 MG Tab PO SCH (08:50)
[2019-02-13] MEDS: Metoprolol Succinate 50 MG Tab.ER PO SCH (08:50)
[2019-02-13] MEDS ORDERED: Furosemide 20 MG/2 ML VIAL IVPUSH ONE (10:00)
[2019-02-13] MEDS: Lactated Ringers 1,000 ML IV SCH ×2 (10:26→19:38)
--- NOTE | 2019-02-13 11:52 | PCM.PN ---
- General Info Date of Service: 02/13/19 Subjective Update: There are no acute events overnight. The patient feels tired but otherwise feels okay. No complaints of shortness of breath. Tolerating diet with no nausea. Kidney function is better today but potassium level has risen to 5.7. She has not been hypoxic. She does still have an elevated anion gap and mild metabolic acidosis. Functional Status: Reports: Pain Controlled, Tolerating Diet, Ambulating - Review of Systems General: Denies: Fever Gastrointestinal: Denies: Abdominal Pain - Patient Data Vitals - Most Recent: Last Vital Signs Temp 35.7 C 02/13/19 10:40 Pulse 82 02/13/19 10:40 Resp 18 02/13/19 10:40 BP 114/69 02/13/19 10:40 Pulse Ox 0 L 02/13/19 10:40 Weight - Most Recent: 70.987 kg I&O - Last 24 Hours: Intake & Output 02/12/19 02/13/19 02/13/19 22:59 06:59 14:59 Intake Total 2040 360 Output Total 400 Balance 2040 -40 Lab Results Last 24 Hours: Laboratory Results - last 24 hr 02/13/19 02/13/19 Range/Units 05:26 05:26 WBC 6.2 (4.5-11.0) K/uL RBC 3.89 (3.30-5.50) M/uL Hgb 11.0 L (12.0-15.0) g/dL Hct 34.7 L (36.0-48.0) % MCV 89 (80-98) fL MCH 28 (27-31) pg MCHC 32 (32-36) % Plt Count 294 (150-400) K/uL Sodium 142 (140-148) mmol/L Potassium 5.7 H (3.6-5.2) mmol/L Chloride 115 H (100-108) mmol/L Carbon Dioxide 16 L (21-32) mmol/L Anion Gap 16.7 H (5.0-14.0) mmol/L BUN 39 H (7-18) mg/dL Creatinine 1.6 H (0.6-1.0) mg/dL Est Cr Clr Drug Dosing 20.48 mL/min Estimated GFR (MDRD) 30 L (>60) Glucose 91 (74-106) mg/dL Calcium 8.0 L (8.5-10.1) mg/dL [place] Results Last 24 Hours: Microbiology 02/11/19 20:22 Urine Culture - Final Urine, Clean Catch Escherichia Coli Med Orders - Current: Current Medications Acetaminophen (Tylenol) 650 mg PO Q4H PRN PRN Reason: Pain (Mild 1-3)/fever Albuterol (Proventil Neb Soln) 2.5 mg NEB Q4H PRN PRN Reason: Shortness Of Breath/wheezing Amlodipine Besylate (Norvasc) [address] [facility] Last Admin: 02/13/19 08:50 Dose: 10 mg Aspirin (Ecotrin) [address] [facility] Last Admin: 02/13/19 08:49 Dose: 325 mg Cephalexin (Keflex) [address] [facility] Cetirizine HCl (Zyrtec) [address] [facility] Last Admin: 02/13/19 08:49 Dose: 10 mg Cholestyramine Resin (Cholestyramine Packet) [address] [facility] Last Admin: 02/13/19 08:49 Dose: 4 gm Lactated Ringer's (Ringers, Lactated) 1,000 mls @ 100 mls/hr IV ASDIRECTED [facility] Last Admin: 02/13/19 10:26 Dose: 100 mls/hr Lactobacillus Rhamnosus (Culturelle) [address] [facility] Last Admin: 02/13/19 08:49 Dose: 1 cap Levothyroxine Sodium (Synthroid) 150 mcg PO DAILY@0730 [facility] Last Admin: 02/13/19 07:35 Dose: 150 mcg Melatonin (Melatonin) 9 mg PO BEDTIME PRN PRN Reason: Sleep Metoprolol Succinate (Toprol Xl) [address] [facility] Last Admin: 02/13/19 08:50 Dose: 100 mg Mirtazapine (Remeron) 7.[address] [facility] Last Admin: 02/12/19 20:34 Dose: 7.5 mg Ondansetron HCl (Zofran Odt) 4 mg PO Q6H PRN PRN Reason: Nausea able to take PO Ondansetron HCl (Zofran) 4 mg IV Q6H PRN PRN Reason: Nausea/Vomiting Discontinued Medications Albuterol/Ipratropium (Duoneb 3.0-0.5 Mg/3 Ml) 3 ml NEB ONETIME ONE Stop: 07/17/19 17:59 Last Admin: 02/11/19 18:08 Dose: 3 ml Furosemide (Lasix) 20 mg IVPUSH NOW ONE Stop: 02/13/19 10:01 Last Admin: 02/13/19 10:25 Dose: 20 mg Sodium Chloride (Normal Saline) 500 mls @ 999 mls/hr IV ASDIRECTED [facility] Last Admin: 02/11/19 18:45 Dose: 999 mls/hr Ceftriaxone Sodium 1 gm/ (Sodium Chloride) 50 mls @ 100 mls/hr IV Q24H [facility] Last Admin: 02/12/19 19:39 Dose: 100 mls/hr Sodium Chloride (Normal Saline) 1,000 mls @ 100 mls/hr IV ASDIRECTED [facility] Last Admin: 02/12/19 03:28 Dose: 100 mls/hr Sodium Chloride (Normal Saline) 1,000 mls @ 500 mls/hr IV ASDIRECTED [facility] Stop: 02/11/19 22:04 Last Admin: 02/11/19 21:23 Dose: 500 mls/hr Sodium Chloride (Normal Saline) 1,000 mls @ 75 mls/hr IV ASDIRECTED [facility] - Exam Quality Assessment: No: Supplemental Oxygen General: Alert, Oriented, Cooperative, No Acute Distress Lungs: Clear to Auscultation, Normal Respiratory Effort Cardiovascular: Regular Rate, Irregular Rhythm GI/Abdominal Exam: Soft, No Distention Extremities: No Pedal Edema Psy/Mental Status: Alert, Normal Affect - Problem List & Annotations (1) Acute kidney injury superimposed on chronic kidney disease SNOMED Code(s): 10016620 Code(s): N17.9 - ACUTE KIDNEY FAILURE, UNSPECIFIED; N18.9 - CHRONIC KIDNEY DISEASE, UNSPECIFIED Status: Acute Current Visit: Yes (2) Metabolic acidosis SNOMED Code(s): 11106203 Code(s): E87.2 - ACIDOSIS Status: Acute Current Visit: Yes (3) Dyspnea on exertion SNOMED Code(s): 12452160 Code(s): R06.09 - OTHER FORMS OF DYSPNEA Status: Acute Current Visit: Yes (4) Hypoxia SNOMED Code(s): 862555567 Code(s): R09.02 - HYPOXEMIA Status: Acute Current Visit: Yes (5) New onset atrial fibrillation SNOMED Code(s): 86897308 Code(s): I48.91 - UNSPECIFIED ATRIAL FIBRILLATION Status: Acute Current Visit: Yes (6) Acute cystitis without hematuria SNOMED Code(s): 66918982 Code(s): N30.00 - ACUTE CYSTITIS WITHOUT HEMATURIA Status: Acute Current Visit: Yes (7) Essential hypertension SNOMED Code(s): 92090514 Code(s): I10 - ESSENTIAL (PRIMARY) HYPERTENSION Status: Chronic Current Visit: Yes - Problem List Review Problem List Initiated/Reviewed/Updated: Yes - My Orders Last 24 Hours: My Active Orders 02/12/19 21:06 Peripheral IV Discontinue [OM.PC] Routine 02/13/19 09:00 Lactated Ringers [Ringers, Lactated] 1,000 ml IV ASDIRECTED 02/13/19 11:51 Discontinue Telemetry Monitoring [Cardiac Monitoring Discontinue] [RC] Click to Edit 02/13/19 15:00 POTASSIUM,K [CHEM] Routine 02/13/19 21:00 cephALEXin [Keflex] 500 mg PO BID 02/14/19 05:00 BASIC METABOLIC PANEL,BMP [CHEM] Timed - Plan Plan:: ASSESSMENT AND PLAN - Acute kidney injury - Creatinine better today but still has elevated gap metabolic acidosis. Blood pressures have remained on the low side of normal but have been very acceptable. She is making good urine. -continue gentle IV fluids -Hold ARB and PPI -Repeat labs in the morning Hyperkalemia - mild at the time of presentation but has risen since yesterday morning. Probably related to her kidney injury with ATN versus interstitial nephritis. -Restart fluids -Dose of furosemide -Repeat this afternoon and in the morning Dyspnea on exertion with associated hypoxia - oxygenation normal today and no symptoms. Probably related to her metabolic acidosis. -Supplement oxygen if needed -As needed nebulizers New-onset atrial fibrillation - multifactorial, rate control good at this time. Echo with normal LV function and only minor valvular abnormalities. -Continue beta greer -Continue aspirin -Discontinue cardiac monitoring Acute cystitis - culture growing pansensitive Escherichia coli. 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 Very low risk for bleeding or complication. -Outpatient follow-up Maintenance issues - - DVT prophylaxis - mechanical - GI prophylaxis - not indicated - Nutrition - regular diet Disposition - I would anticipate discharge home after the hospital stay Primary care physician - no local primary care, patient resides in [place], [place] Ron Ness M.D.
[2019-02-13] MEDS: Cephalexin 250 MG Cap PO SCH (20:22)
[2019-02-13] MEDS: Mirtazapine 15 MG Tab PO SCH (20:22)
[2019-02-14] MEDS: Lactated Ringers 1,000 ML IV SCH (04:45)
--- NOTE | 2019-02-14 10:03 | PCM.DCSUM1 ---
Discharge Summary - Hospital Course Brief History: 88-year-old female with history of essential hypertension, stage III chronic kidney disease and diabetes mellitus who presented with shortness of breath to the clinic. She was sent to the emergency room for evaluation and admitted to the hospital with acute kidney injury and dyspnea with exertion. Diagnosis: Stroke: No - Discharge Data Discharge Date: 02/14/19 Discharge Disposition: Home, Self-Care 01 Condition: Good - Discharge Diagnosis/Problem(s) (1) Acute kidney injury superimposed on chronic kidney disease SNOMED Code(s): 44288998 ICD Code: N17.9 - ACUTE KIDNEY FAILURE, UNSPECIFIED; N18.9 - CHRONIC KIDNEY DISEASE, UNSPECIFIED Status: Acute (2) Metabolic acidosis SNOMED Code(s): 32419510 ICD Code: E87.2 - ACIDOSIS Status: Acute (3) Dyspnea on exertion SNOMED Code(s): 04449625 ICD Code: R06.09 - OTHER FORMS OF DYSPNEA Status: Acute (4) Hypoxia SNOMED Code(s): 812275351 ICD Code: R09.02 - HYPOXEMIA Status: Acute (5) New onset atrial fibrillation SNOMED Code(s): 74850619 ICD Code: I48.91 - UNSPECIFIED ATRIAL FIBRILLATION Status: Acute (6) Acute cystitis without hematuria SNOMED Code(s): 45706855 ICD Code: N30.00 - ACUTE CYSTITIS WITHOUT HEMATURIA Status: Acute (7) Essential hypertension SNOMED Code(s): 24778728 ICD Code: I10 - ESSENTIAL (PRIMARY) HYPERTENSION Status: Chronic (8) Hyperkalemia SNOMED Code(s): 52214665 ICD Code: E87.5 - HYPERKALEMIA Status: Acute - Patient Summary/Data Consults: Consultations 02/12/19 10:37 PT Evaluation and Treatment [CONS] Routine Please Evaluate and Treat. PT Reason for Consult: Strengthening This query below is only for informational purposes and is not editable. Admission Diagnosis/Problem: Acute kidney injury Hospital Course: Antonietta presented initially to the urgent care clinic with dyspnea on exertion. Workup in the clinic revealed a fairly normal looking chest x-ray but her laboratory studies showed acute kidney injury with a creatinine of 3.2. She had a mild metabolic acidosis at that time. There was concern for potential acute coronary syndrome so she was sent to the emergency room. Workup there included a troponin which was unremarkable as well as CBC which was unremarkable. Urinalysis was suggestive of infection. Cardiac monitoring suggested rate controlled atrial fibrillation. Initially she was thought to be hypoxic requiring 2 L of supplemental oxygen but after adjusting the probe it became apparent that the patient was not actually hypoxic and did not require supplemental oxygen. The patient was admitted to the hospital after receiving some IV fluids. She was admitted for management of acute kidney injury, metabolic acidosis and evaluation of new-onset atrial fibrillation. Her losartan and pantoprazole were held at the time of presentation with concerns that they could be contributing to her kidney injury. She did have mild hyperkalemia at presentation. She received IV fluids overnight and by the morning after admission her creatinine level had improved down to 2.2. She still had a metabolic acidosis with elevated anion gap slightly better than the day before. Urine culture was growing gram-negative rods with identification pending and she was tolerating her empiric ceftriaxone. We continued IV fluids gently for the next 24 hours and continued antibiotics. The hospital day 2 of the stay her creatinine is down to 1.6. She has redeveloped hyperkalemia with a level now up to 5.7 which I suspect was related to her renal insult with probable contribution from her ARB and possibly her PPI. She received additional fluids as well as a dose of furosemide. Urine culture returned this morning showing pansensitive Escherichia coli and antibiotics were adjusted to cephalexin. Recheck of the potassium later in the day showed it was down to 4.9 and on the morning of discharge it was down for. Creatinine is now down to 1.2 at the time of discharge. She is feeling well and up and walking around and I believe she is safe and stable for outpatient management at this point. She will need for additional doses of antibiotics to complete treatment for urinary tract infection.Physically she is doing well but would benefit from close follow -up to make sure that her creatinine and potassium remain stable. I did hold both her losartan and proton pump inhibitor at the time of discharge. If her blood pressure should rise post hospital stay of the losartan may need to be restarted and should be safe to do so now that her prerenal causes have been resolved. she does remain in atrial fibrillation and has excellent rate control at this time. I have elected to not start her on systemic anticoagulation because I suspect the atrial fibrillation is related to metabolic derangements and infection. She did have an echocardiogram which was nearly normal with only very mild valvular abnormalities. if she has persistent atrial fibrillation systemic anticoagulation may need to be considered. 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 This was less than 2 cm in diameter at 16 mm and thought to be very low risk for bleeding or complication. She may benefit from outpatient follow-up to see if this lesion progresses in size. - Patient Instructions Diet: Regular Diet as Tolerated Activity: As Tolerated Showering/Bathing: May Shower Notify Provider of: Fever, Increased Pain Other/Special Instructions: 1. You were in the hospital for management of acute kidney injury, hyperkalemia (elevated potassium), metabolic acidosis, urinary tract infection and paroxysmal atrial fibrillation. I suspect that your kidney troubles, elevated potassium and acid/base imbalance were related to the infection and probably contribution from your home medications with most likely culprits including losartan and pantoprazole. All of the above issues have been steadily improving with management in the hospital. I do recommend that you stop taking losartan and pantoprazole, at least for the time being. Your blood pressures have been normal without the blood pressure medication. You will need additional antibiotics for the bladder infection. Please take cephalexin 500 mg twice daily with food for 4 more doses. Your first dose out of the hospital will be due tonight. 2. Continue your other home medications as previously prescribed (do not take losartan or pantoprazole, at least until your follow-up with Dr. Morrison). 3. Follow up on as scheduled. You should have blood work done prior to your appointment. 4. Seek medical attention if you have fever greater than 101, severe shortness of breath or if you develop significant abdominal pain, persistent vomiting or severe diarrhea. - Discharge Plan *PRESCRIPTION DRUG MONITORING PROGRAM REVIEWED*: Not Applicable *COPY OF PRESCRIPTION DRUG MONITORING REPORT IN PATIENT FLETCHER: Not Applicable Prescriptions/Med Rec: cephALEXin [Cephalexin] 500 mg PO BID #4 capsule Home Medications: Home Meds Aspirin 325 mg PO DAILY 02/11/19 [History] Calcium Citrate 200 mg PO DAILY 02/11/19 [History] Cetirizine [ZyrTEC] 10 mg PO DAILY 02/11/19 [History] Cholestyramine (With Sugar) [Questran Powder] 4 gm PO DAILY 02/11/19 [History] L Acidophil/B Lactis/B Longum [Florajen3] 460 mg PO DAILY 02/11/19 [History] Levothyroxine Sodium [Synthroid] 150 mcg PO DAILY 02/11/19 [History] Losartan [Cozaar] 100 mg PO DAILY 02/11/19 [History] Meclizine [Antivert] 25 mg PO TID 02/11/19 [History] Metoprolol Succinate [Toprol XL 100mg] 100 mg PO DAILY 02/11/19 [History] Mirtazapine [Remeron] 7.5 mg PO BEDTIME 02/11/19 [History] Pantoprazole Sodium [Protonix] 40 mg PO DAILY 02/11/19 [History] Triamcinolone Acetonide [Kenalog 0.1% Crm] 1 applic TOP DAILY 02/11/19 [History] amLODIPine Besylate [Norvasc] 10 mg PO DAILY 02/11/19 [History] cephALEXin [Cephalexin] 500 mg PO BID #4 capsule 02/14/19 [Rx] Oxygen Therapy Mode: Room Air Patient Handouts: Urinary Tract Infection, Adult, Cephalexin tablets or capsules Referrals: Jenna Morrison MD [Physician] - 02/19/19 2:00 pm (Please arrive 30 minutes early to register for your appointment and have lab work drawn prior to appointment.) - Discharge Summary/Plan Comment DC Time >30 min.: No - Patient Data Vitals - Most Recent: Last Vital Signs Temp 36.3 C 02/14/19 08:34 Pulse 100 02/14/19 08:34 Resp 18 02/14/19 08:34 BP 130/75 02/14/19 08:34 Pulse Ox 100 02/14/19 08:34 Weight - Most Recent: 70.987 kg I&O - Last 24 hours: Intake & Output 02/13/19 02/14/19 02/14/19 22:59 06:59 14:59 Intake Total 1221 1060 Balance 1221 1060 Lab Results - Last 24 hrs: Laboratory Results - last 24 hr 02/13/19 02/14/19 Range/Units 15:00 04:37 Sodium 142 (140-148) mmol/L Potassium 4.9 4.3 (3.6-5.2) mmol/L Chloride 113 H (100-108) mmol/L Carbon Dioxide 17 L (21-32) mmol/L Anion Gap 16.3 H (5.0-14.0) mmol/L BUN 28 H (7-18) mg/dL Creatinine 1.4 H (0.6-1.0) mg/dL Est Cr Clr Drug Dosing 23.41 mL/min Estimated GFR (MDRD) 36 L (>60) Glucose 110 H (74-106) mg/dL Calcium 7.9 L (8.5-10.1) mg/dL EDUARDO Results - Last 24 hrs: Microbiology 02/11/19 20:22 Urine Culture - Final Urine, Clean Catch Escherichia Coli Med Orders - Current: Current Medications Acetaminophen (Tylenol) 650 mg PO Q4H PRN PRN Reason: Pain (Mild 1-3)/fever Albuterol (Proventil Neb Soln) 2.5 mg NEB Q4H PRN PRN Reason: Shortness Of Breath/wheezing Amlodipine Besylate (Norvasc) 10 mg PO DAILY [facility] Last Admin: 02/13/19 08:50 Dose: 10 mg Aspirin (Ecotrin) 325 mg PO DAILY [facility] Last Admin: 02/13/19 08:49 Dose: 325 mg Cephalexin (Keflex) 500 mg PO BID [facility] Last Admin: 02/13/19 20:22 Dose: 500 mg Cetirizine HCl (Zyrtec) 10 mg PO DAILY [facility] Last Admin: 02/13/19 08:49 Dose: 10 mg Cholestyramine Resin (Cholestyramine Packet) 4 gm PO DAILY [facility] Last Admin: 02/13/19 08:49 Dose: 4 gm Lactated Ringer's (Ringers, Lactated) 1,000 mls @ 100 mls/hr IV ASDIRECTED [facility] Last Admin: 02/14/19 04:45 Dose: 100 mls/hr Lactobacillus Rhamnosus (Culturelle) 1 cap PO DAILY [facility] Last Admin: 02/13/19 08:49 Dose: 1 cap Levothyroxine Sodium (Synthroid) 150 mcg PO DAILY@0730 [facility] Last Admin: 02/13/19 07:35 Dose: 150 mcg Melatonin (Melatonin) 9 mg PO BEDTIME PRN PRN Reason: Sleep Metoprolol Succinate (Toprol Xl) 100 mg PO DAILY [facility] Last Admin: 02/13/19 08:50 Dose: 100 mg Mirtazapine (Remeron) 7.5 mg PO BEDTIME [facility] Last Admin: 02/13/19 20:22 Dose: 7.5 mg Ondansetron HCl (Zofran Odt) 4 mg PO Q6H PRN PRN Reason: Nausea able to take PO Ondansetron HCl (Zofran) 4 mg IV Q6H PRN PRN Reason: Nausea/Vomiting Discontinued Medications Albuterol/Ipratropium (Duoneb 3.0-0.5 Mg/3 Ml) 3 ml NEB ONETIME ONE Stop: 02/11/19 17:59 Last Admin: 02/11/19 18:08 Dose: 3 ml Furosemide (Lasix) 20 mg IVPUSH NOW ONE Stop: 02/13/19 10:01 Last Admin: 02/13/19 10:25 Dose: 20 mg Sodium Chloride (Normal Saline) 500 mls @ 999 mls/hr IV ASDIRECTED [facility] Last Admin: 02/11/19 18:45 Dose: 999 mls/hr Ceftriaxone Sodium 1 gm/ (Sodium Chloride) 50 mls @ 100 mls/hr IV Q24H [facility] Last Admin: 02/12/19 19:39 Dose: 100 mls/hr Sodium Chloride (Normal Saline) 1,000 mls @ 100 mls/hr IV ASDIRECTED [facility] Last Admin: 02/12/19 03:28 Dose: 100 mls/hr Sodium Chloride (Normal Saline) 1,000 mls @ 500 mls/hr IV ASDIRECTED [facility] Stop: 02/11/19 22:04 Last Admin: 02/11/19 21:23 Dose: 500 mls/hr Sodium Chloride (Normal Saline) 1,000 mls @ 75 mls/hr IV ASDIRECTED [facility] - Exam Quality Assessment: Denies: Supplemental Oxygen General: Reports: Alert, Oriented, Cooperative, No Acute Distress Lungs: Reports: Normal Respiratory Effort GI/Abdominal Exam: Soft, No Distention Extremities: No Pedal Edema Psy/Mental Status: Reports: Alert, Normal Affect
[2019-02-14] MEDS: Cephalexin 250 MG Cap PO SCH (10:38)
== END 2019-02-14 10:58 | disposition home or self-care (01) | DRG 683 ==
LOC: JP.ED 16:37 → JP.MS 20:22 → UNDOADMIN 20:22 → JP.MS 21:03 → UNDODISIN 02-14 10:58
PROVIDERS: ADMIT Internal Medicine; ATTEND Internal Medicine
DX: N17.9 Acute kidney failure, unspecified (principal); E87.2 Acidosis; N30.00 Acute cystitis without hematuria; E86.0 Dehydration; I48.91 Unspecified atrial fibrillation; I12.9 Hypertensive chronic kidney disease with stage 1 through stage 4 chronic kidney disease, or unspecified chronic kidney disease; E11.22 Type 2 diabetes mellitus with diabetic chronic kidney disease; N18.3 Chronic kidney disease, stage 3 (moderate); M54.9 Dorsalgia, unspecified; G89.29 Other chronic pain; E87.5 Hyperkalemia; E03.9 Hypothyroidism, unspecified; R53.1 Weakness; R42 Dizziness and giddiness; R06.02 Shortness of breath; I48.0 Paroxysmal atrial fibrillation; R91.1 Solitary pulmonary nodule; D17.71 Benign lipomatous neoplasm of kidney; B96.20 Unspecified Escherichia coli [E. coli] as the cause of diseases classified elsewhere; R06.09 Other forms of dyspnea; K52.9 Noninfective gastroenteritis and colitis, unspecified; H54.7 Unspecified visual loss; Z86.73 Personal history of transient ischemic attack (TIA), and cerebral infarction without residual deficits; L30.9 Dermatitis, unspecified; Z88.1 Allergy status to other antibiotic agents; Z88.0 Allergy status to penicillin; Z88.7 Allergy status to serum and vaccine; Z88.8 Allergy status to other drugs, medicaments and biological substances; Z79.82 Long term (current) use of aspirin
CPT/HCPCS: 36415; 71250; 81001; 84443; 84484; 85025; 87088; 94640; 99284; J7030; 76770; 80048; 83735; 84132; 85027; 87086; 87186; 93306; 97110-GP; 97161-GP; 97530-GP; 97535-GP; 99285; A9270-GY; J0696; J1940; J7050; J7120; J7620-GY